=== PATIENT | male | born 1935 | race Caucasian/White ===

== ENCOUNTER 2016-02-20 14:08 | Emergency (ER) | payer OTHER, MEDICARE ==
[~2016-02-20] VITALS: Ht 182.9 cm; Wt 101.6 kg
[~2016-02-20 14:08] MED LIST: ATORVASTATIN CA40 M1 PO; COUMADIN2 M1 PO; FUROSEMIDE20 M1 PO; METOPROLOL TART25 M1 PO; SERTRALINE HCL100 MG PO; VERAPAMIL HCL PO
--- NOTE | 2016-02-20 15:31 | ED GI/GU/ABDOMINAL COMPLAINT ---
History of Present Illness General Chief Complaint: General Adult Stated Complaint: DISLODGED FEEDING TUBE Source: patient Exam Limitations: no limitations Vital Signs & Intake/Output Vital Signs & Intake/Output Vital Signs Date Time Temp Pulse Resp B/P Pulse O2 O2 Flow FiO2 Ox Delivery Rate 02/19 1708 87 18 128/68 94 Room Air 02/19 1531 Room Air 02/19 1415 97.7 86 18 117/72 94 Room Air Allergies Coded Allergies: Anesthetics - Amide Type (HALLUCINATIONS 02/20/16) Anesthetics - Sveta Type- Parabens (HALLUCINATIONS 02/20/16) dexamethasone (LARGE AMOUNTS WILL CAUSE PT TO BECOME COMBATIVE AND AGGRESSI 10/28) Reconcile Medications Atorvastatin Calcium 40 MG TABLET 1 TAB PO QPM CHOLESTEROL (Reported) Furosemide 20 MG TABLET 1 TAB PO DAILY WATER PILL (Reported) Lactose-Reduced Food/Fiber (Jevity 1.5 Victor M Liquid) 0.06 GRAM-1.5 KCAL/ML LIQUID 1.5 CAN PO 4 TIMES/DAY SUPPLEMENT (Reported) Loperamide HCl (Imodium A-D) 2 MG TABLET 1 TAB PO AD PRN LOOSE STOOL ( Reported) Metoprolol Tartrate 25 MG TABLET 1 TAB PO BID HEART (Reported) Sertraline HCl 100 MG TABLET 1.5 TAB PO DAILY MENTAL HEALTH (Reported) Verapamil HCl 80 MG TABLET 1 TAB PO TID HEART (Reported) Warfarin Sodium (Coumadin) 5 MG TABLET 1 TAB PO DAILY BLOOD THINNER (Reported ) Triage Note: PT STATES THAT HIS FEEDING TUBE PULLED OUT AROUND 11 AM, CALLED IR AND THEY DID NOT CALL HER BACK RIGHT AWAY AND WHEN THEY DID THEY TOLD THEM TO COME TO ER. HAS FEEDING TUBE IN PLASTIC BAG. PT OFFERS NO COMPLAINTS Triage Nurses Notes Reviewed? yes Onset: Abrupt Duration: hour(s):, continues in ED Timing: single episode today HPI: Patient presents for evaluation of a displaced gastrostomy tube that occurred this morning. Patient states he mistakenly pulled the tube out. He requires some nighttime medications via the tube given his history of head and neck cancer. (ELLIOT BRAND,WILMAR Dodson) Past History Travel History Traveled to [place] past 21 day No Medical History Any Pertinent Medical History? 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 No (ELLIOT BRAND,WILMAR Dodson) Review of Systems Review of Systems Constitutional: Reports: no symptoms. EENTM: Reports: no symptoms. Respiratory: Reports: no symptoms. Cardiovascular: Reports: no symptoms. GI: Reports: see HPI. Genitourinary: Reports: no symptoms. Musculoskeletal: Reports: no symptoms. Skin: Reports: no symptoms. Neurological/Psychological: Reports: no symptoms. Hematologic/Endocrine: Reports: no symptoms. Immunologic/Allergic: Reports: no symptoms. All Other Systems: Reviewed and Negative (ELLIOT BRAND,WILMAR Dodson) Physical Exam Physical Exam Gastrointestinal: see below Comments: Gen.: Well-nourished, well-developed, no acute respiratory distress. Head: Normocephalic, atraumatic. Eyes: Normal inspection bilaterally Ears: Normal inspection bilaterally Nose: Normal inspection Throat/mouth : Moist mucosa Neck: Supple, full range of motion, no goiter Lungs: Quiet respirations Chest: Nontender Back: Normal range of motion Abdomen: Soft, nontender, nondistended, normal bowel sounds, intact gastrostomy site Extremities: Normal range of motion grossly Neurologic: Cranial nerves grossly intact, speech is clear Skin: warm and dry Psychiatric: Calm, cooperative, no apparent delusions or hallucinations Core Measures ACS in differential dx? No Severe Sepsis Present: No Septic Shock Present: No (ELLIOT BRAND,WILMAR Dodson) Progress Differential Diagnosis: DISPLACED GASTROSTOMY TUBE Plan of Care: IR FOR G TUBE PLACEMENTDiagnostic Imaging: Discussed w/RAD: Radiology Read. Radiology Impression: PATIENT: BLAZE LEE PRESENT AGE: 80 PATIENT ACCOUNT NO: [id number] : 33 LOCATION: [facility] ORDERING PHYSICIAN: WILMAR ZARATE MD SERVICE DATE: 02/20/16 EXAM TYPE: RAD - XRY-PORTABLE ABDOMEN EXAMINATION: XR PORTABLE ABDOMEN CLINICAL INFORMATION : History of head and neck cancer. Recent placement of G-tube. Status post " finder" catheter placement. COMPARISON: Interventional exam was done November 2015. TECHNIQUE: AP portable view of the abdomen following injection of contrast into the "finder" catheter. FINDINGS: Exam shows that the tip of the catheter is in the first portion of the duodenum. Contrast also enters the second portion of the duodenum. There is no apparent extravasation. Otherwise unremarkable. There are severe hypertrophic and degenerative changes of the lower thoracic and lumbar spines. IMPRESSION: The tip of the catheter is in the duodenal bulb. DICTATED BY: LALY MARADIAGA MD DATE/TIME DICTATED:02/20/161843 ACCOUNTING TUTOR:LATHA DATE/TIME TRANSCRIBED:02/20/161843 CONFIDENTIAL, DO NOT COPY WITHOUT APPROPRIATE AUTHORIZATION. <Electronically signed in Other Vendor System> SIGNED BY: LALY MARADIAGA MD 02/20/16 185 Initial ED EKG: none Comments: 02/20/2016 4:27:56 PM attempt to replace gastrostomy tube unsuccessful in ED. message left with IR. 02/20/2016 4:37:54 PM clinton to be evaluated by the interventional radiologist in the emergency department. 02/20/2016 6:08:57 PM Blaze has been evaluated by the interventional radiologist and a small "finder" catheter has been placed. It will be injected to confirm placement in the stomach. 02/20/2016 6:59:40 PM Villaseñor catheter placed over the finder catheter in a Seldinger technique. Repeat abdominal x-ray performed with contrast. Patient signed out to Dr. Trejo. (ELLIOT BRAND,WILMAR Dodson) Plan of Care: IR FOR G TUBE PLACEMENT Radiology Impression: PATIENT: BLAZE LEE PRESENT AGE: 80 PATIENT ACCOUNT NO: [id number] : 33 LOCATION: ER ORDERING PHYSICIAN: WILMAR ZARATE MD SERVICE DATE: 02/20/16 EXAM TYPE: RAD - XRY-PORTABLE ABDOMEN EXAMINATION: XR PORTABLE ABDOMEN CLINICAL INFORMATION : Gastrotomy tube placement confirmation COMPARISON: None. TECHNIQUE: Supine abdomen. Contrast injected through the gastrotomy tube. FINDINGS: Catheter tip in stomach. Contrast opacifies the mid distal stomach and proximal duodenum. No extravasation of the contrast. IMPRESSION: Gastrotomy tube in stomach. No extravasation of contrast. DICTATED BY: MICHELE CHAUHAN MD DATE/TIME DICTATED:02/19 ACCOUNTING TUTOR:LATHA DATE/TIME TRANSCRIBED:02/20/161900 CONFIDENTIAL, DO NOT COPY WITHOUT APPROPRIATE AUTHORIZATION. <Electronically signed in Other Vendor System> SIGNED BY: MICHELE CHAUHAN MD 02/20/16 7004 (PILAR BRAND,YING Montano) Departure Departure Condition: Stable Clinical Impression Primary Impression: Gastrostomy tube dysfunction Referrals: WHITLEY GREEN MD (PCP/Family) Departure Forms: Customer Survey General Discharge Information (ELLIOT BRAND,WILMAR Dodson) Departure Disposition: HOME OR SELF CARE Additional Instructions: Follow-up with interventional radiology tomorrow to have the definitive gastrostomy tube placed. Return if symptoms worsen or for any concerns. (PILAR BRAND,YING Montano)
[2016-02-20] MEDS ORDERED: COUMADIN5 M2 PO (16:02)
[2016-02-20] MEDS ORDERED: JEVITY 1.5 CAL237 ML PO (16:03)
[2016-02-20] MEDS ORDERED: IMODIUM A-D2 M1 PO (16:04)
--- NOTE | 2016-02-20 18:52 | RADIOLOGY REPORT ---
EXAMINATION: XR PORTABLE ABDOMEN CLINICAL INFORMATION: History of head and neck cancer. Recent placement of G-tube. Status post " finder" catheter placement. COMPARISON: Interventional exam was done November 2015. TECHNIQUE: AP portable view of the abdomen following injection of contrast into the "finder" catheter. FINDINGS: Exam shows that the tip of the catheter is in the first portion of the duodenum. Contrast also enters the second portion of the duodenum. There is no apparent extravasation. Otherwise unremarkable. There are severe hypertrophic and degenerative changes of the lower thoracic and lumbar spines. IMPRESSION: The tip of the catheter is in the duodenal bulb.
--- NOTE | 2016-02-20 19:06 | RADIOLOGY REPORT ---
EXAMINATION: XR PORTABLE ABDOMEN CLINICAL INFORMATION: Gastrotomy tube placement confirmation COMPARISON: None. TECHNIQUE: Supine abdomen. Contrast injected through the gastrotomy tube. FINDINGS: Catheter tip in stomach. Contrast opacifies the mid distal stomach and proximal duodenum. No extravasation of the contrast. IMPRESSION: Gastrotomy tube in stomach. No extravasation of contrast.
[2016-02-20 19:44] VITALS: BP 129/65
== END 2016-02-20 19:28 ==
LOC: ERH 14:08
DX: Z43.1 Encounter for attention to gastrostomy (principal)
CPT/HCPCS: 74000